=== PATIENT | male | born 1980 | race Caucasian/White ===

== ENCOUNTER 2018-04-09 09:14 | Observation (INO) | payer OTHER ==
[~2018-04-09] VITALS: Ht 185.4 cm; Wt 155.2 kg
[~2018-04-09 09:14] MED LIST: AMBIEN10 M1 PO; ANASPAZ0.125 MG SL; IBUPROFEN PO; PROMETHAZINE HC25 M1 PO; Percocet 5/325,Endoc PO; SENOKOT-S PO; VICODIN; Vicodin,Norco 5/325 PO; [UNRECOGNIZED DRUG - REMARK]
[2018-04-09 10:01] LABS: HEMATOCRIT 43.5 % (38.0-50.0); HEMOGLOBIN 14.7 G/DL (12.5-16.6); MCH 29.9 PG (29.0-34.0); MCHC 33.8 G/DL (30.0-36.0); MCV 88.6 FL (86-99); PLATELET COUNT 211 K/uL (156-360); RBC DIS.WIDTH-CV 11.9 % (11.8-14.6); RBC DIS.WIDTH-SD 38.5 % (39-53); RED BLOOD COUNT 4.91 M/uL (4.00-5.50); WHITE BLOOD COUNT 6.4 K/uL (4.1-10.2)
[2018-04-09 10:13] LABS: CHLORIDE 108 mEq/L (99-109); POTASSIUM 4.3 mEq/L (3.7-5.4); SODIUM 140 mEq/L (136-147)
[2018-04-09 10:22] LABS: GLUCOSE 103 mg/dL (70-99)
[2018-04-09 10:26] LABS: CREATININE 1.1 mg/dL (0.6-1.3); GFR ESTIMATE (CALCULATED) > 59 mL/min/ (58.99-99999)
[2018-04-09 10:27] LABS: UREA NITROGEN (BUN) 8 mg/dL (9-23)
[2018-04-09 10:44] LABS: TOTAL PROTEIN 7.4 g/dL (6.4-8.3)
[2018-04-09 10:46] LABS: TOTAL BILIRUBIN 0.6 mg/dL (0.0-1.0)
[2018-04-09 10:47] LABS: ALKALINE PHOSPHATASE 54 IU/L (3-129)
[2018-04-09 10:49] LABS: AST (GOT) 27 IU/L (2-34); DIRECT BILIRUBIN 0.3 mg/dL (0.0-0.3)
[2018-04-09 10:50] LABS: ALT (GPT) 50 IU/L (3-49); LIPASE 21 U/L (1.0-51.0)
[2018-04-09 12:12] LABS: HEMOGLOBIN 15.5 G/DL (12.5-16.6); MCV 88.1 FL (86-99)
[2018-04-09] MEDS ORDERED: SUBOXONE 12 MG1 EACH SL (12:38)
[2018-04-09] MEDS ORDERED: CLONIDINE HCL0.1 MG PO (12:38)
[2018-04-09] MEDS ORDERED: ADIPEX-P37.5 M1 PO (12:39)
[2018-04-09] MEDS ORDERED: TESTOSTERO200 MG/12 IM (12:40)
[2018-04-09] MEDS ORDERED: ZYRTEC10 M3 PO (12:42)
[2018-04-09] MEDS ORDERED: MULTI VITAMIN1 EACH PO (12:42)
[2018-04-09 13:14] LABS: APPEARANCE CLEAR ((CLEAR)); BILIRUBIN NEGATIVE; BLOOD NEGATIVE; COLOR YELLOW ((YELLOW)); GLUCOSE (STRIP) NEGATIVE; KETONES NEGATIVE; LEUKOCYTES NEGATIVE; NITRITE NEGATIVE; PROTEIN (STRIP) NEGATIVE; SPECIFIC GRAVITY 1.018 (1.000-1.030); UCUL ADDED? NO
[2018-04-09 13:29] VITALS: BP 139/81
[2018-04-09 15:59] VITALS: BP 129/80
[2018-04-09 20:01] VITALS: BP 131/86
[2018-04-09 23:57] VITALS: BP 134/74
[2018-04-10 03:36] VITALS: BP 105/57
[2018-04-10 05:45] LABS: HEMOGLOBIN 14.5 G/DL (12.5-16.6); RED BLOOD COUNT 4.87 M/uL (4.00-5.50); WHITE BLOOD COUNT 8.7 K/uL (4.1-10.2)
[2018-04-10 05:46] LABS: HEMATOCRIT 43.4 % (38.0-50.0); MCH 29.8 PG (29.0-34.0); MCHC 33.4 G/DL (30.0-36.0); MCV 89.1 FL (86-99); PLATELET COUNT 217 K/uL (156-360); RBC DIS.WIDTH-CV 12.2 % (11.8-14.6); RBC DIS.WIDTH-SD 39.7 % (39-53)
[2018-04-10 06:22] LABS: CHLORIDE 106 MEQ/L (99-109); CREATININE 1.2 MG/DL (0.6-1.3); GFR ESTIMATE (CALCULATED) > 59 mL/min/ (58.99-99999); GLUCOSE 89 mg/dL (70-99); SODIUM 141 MEQ/L (136-147); UREA NITROGEN (BUN) 9 mg/dL (9-23)
[2018-04-10 08:00] VITALS: BP 129/79
[2018-04-10 19:17] VITALS: BP 149/89
[2018-04-10 23:58] VITALS: BP 118/63
[2018-04-11 03:46] VITALS: BP 116/74
[2018-04-11 05:51] LABS: HEMATOCRIT 41.7 % (38.0-50.0); HEMOGLOBIN 14.1 G/DL (12.5-16.6); MCV 88.7 FL (86-99)
[2018-04-11 07:15] VITALS: BP 121/60
[2018-04-11 11:28] VITALS: BP 122/76
[2018-04-11] MEDS ORDERED: SENNA LAX8.6 MG PO (11:42)
[2018-04-11] MEDS ORDERED: POLYETHYLENE GL17 GM PO (11:42)
[2018-04-11] MEDS ORDERED: CARAFATE1 GM PO (11:44)
[2018-04-11] MEDS ORDERED: PROTONIX40 MG PO (11:44)
== END 2018-04-11 14:20 | disposition home or self-care (01) ==
LOC: EME 09:14 → 5SOUTH 12:08 → EDOF 12:08 → ENRESERV 12:09 → 5SOUTH 13:23
PROVIDERS: Emergency Medicine Emergency Medical Services; Hospitalist; Internal Medicine
PROC: 0DJ08ZZ Inspection of Upper Intestinal Tract, Via Natural or Artificial Opening Endoscopic (ICD-10-PCS; principal; 2018-04-10)
DX: K92.2 Gastrointestinal hemorrhage, unspecified (principal); K29.70 Gastritis, unspecified, without bleeding; R16.0 Hepatomegaly, not elsewhere classified; Q43.0 Meckel's diverticulum (displaced) (hypertrophic); Z98.890 Other specified postprocedural states; K21.9 Gastro-esophageal reflux disease without esophagitis; Z87.19 Personal history of other diseases of the digestive system; K59.00 Constipation, unspecified
CPT/HCPCS: 74177; 80048; 80076; 81003; 82948; 83690; 85014; 85018; 85027; 86850; 86900; 86901; 87081; 99281; 99285; C9113; G0378; J0572; J2250; J2354; J2405; J3010; J7040; J7643